=== PATIENT | female | born 1955 | race Two or more races ===

== ENCOUNTER → 2024-04-08 13:36 | Outpatient (REF) | payer MEDICARE, SELFPAY | LOC: MRI 3T 13:36 | PROVIDERS: ATTENDING PHYSICIAN Family Medicine Sports Medicine | DX: S43.431A Superior glenoid labrum lesion of right shoulder, initial encounter (principal); M75.01 Adhesive capsulitis of right shoulder | CPT/HCPCS: 23350; 73040; 73222 ==